=== PATIENT | female | born 1935 | race Caucasian/White ===

== ENCOUNTER → 2018-03-08 | Outpatient (CLI) | payer MEDICARE ==
[~2018-03-08] MED LIST: APIX5TAB PO; ATEN25TA PO; CLON-275 PO; FURO-93 PO; HYDR-3342 PO; LEVO200T5 PO; LOSA1TAB25 PO; POTA20TA14 PO; RALO60TA PO
== END | disposition home or self-care (01) ==
LOC: CFH 09:10
PROVIDERS: ATTEND Nurse Practitioner
DX: M50.222 Other cervical disc displacement at C5-C6 level (principal); M43.12 Spondylolisthesis, cervical region; E03.9 Hypothyroidism, unspecified; I10 Essential (primary) hypertension; Z88.8 Allergy status to other drugs, medicaments and biological substances
CPT/HCPCS: 72141

== ENCOUNTER 2018-09-06 10:15 | Inpatient (IN) | payer MEDICARE ==
[~2018-09-06] VITALS: Ht 157.5 cm; Wt 62.3 kg
[2018-09-06 11:00] LABS: BASOPHILS # (AUTO) 0.03 x10^3/uL (0-0.1); BASOPHILS % (AUTO) 0 % (0-1); EOSINOPHILS # (AUTO) 0.08 x10^3/uL (0-0.4); EOSINOPHILS % (AUTO) 1 % (1-7); LYMPHOCYTES # (AUTO) 0.99 x10^3/uL (1-3.4); LYMPHOCYTES % (AUTO) 12 % (22-44); MD NO; MEAN CORPUSCULAR HEMOGLOBIN 31.3 pg (27.0-34.8); MEAN CORPUSCULAR HGB CONC 32.5 g/dL (32.4-35.8); MEAN CORPUSCULAR VOLUME 96.3 fL (80-100); MEAN PLATELET VOLUME 9.9 fL (7.4-10.4); MONOCYTES # (AUTO) 0.54 x10^3/uL (0.2-0.8); MONOCYTES % (AUTO) 7 % (2-9); NEUTROPHILS # (AUTO) 6.68 x10^3/uL (1.8-6.8); NEUTROPHILS % (AUTO) 80 % (42-75); PLATELET COUNT 187 x10^3/uL (130-400); RED BLOOD COUNT 3.84 x10^6/uL (3.82-5.3); RED CELL DISTRIBUTION WIDTH 14.5 % (9.6-15.2)
[2018-09-06] MEDS ORDERED: SODIUM CHLORIDE FLUSH 10ML SYR IVF ONE (11:00)
[2018-09-06] MEDS ORDERED: ALBUTEROL/IPRATROPIUM 2.5MG/0.5MG, 3 ML NPPB PRN ×2 (11:00→17:00)
[2018-09-06 11:11] LABS: ALANINE AMINOTRANSFERASE 20 U/L (12-78); ALBUMIN 3.6 g/dL (3.4-5.0); ANION GAP 7 mmol/L (5-15); CALCIUM 9.1 mg/dL (8.5-10.1); CHLORIDE 106 mmol/L (98-107)
[2018-09-06 11:16] LABS: ALKALINE PHOSPHATASE 24 U/L (45-117); BILIRUBIN,TOTAL 1.1 mg/dL (0.2-1.0); CREATININE 1.22 mg/dL (0.55-1.02); TOTAL PROTEIN 7.4 g/dL (6.4-8.2); TROPONIN I < 0.015 ng/mL (0.000-0.045)
[2018-09-06] MEDS ORDERED: ALBUTEROL/IPRATROPIUM 2.5MG/0.5MG, 3 ML ONE ×2 (11:20→15:52)
--- NOTE | 2018-09-06 11:22 | NUR ---
PT PLACED ON HEART MONITOR, BP CUFF, PULSE OX. VSS/UPDATED IN COMPUTER. WARM BLANKET PROVIDED, CALL LIGHT WITHIN REACH. POC DISCUSSED WITH PT AND FAMILY. RT AT BS.
--- NOTE | 2018-09-06 11:34 | NUR ---
ERROR, PREVIOUS NOTE PLACED IN ERROR UNDER YO RN. CARE ASSUMED BY THIS RN: PT PLACED ON HEART MONITOR, BP CUFF, PULSE OX. VSS/UPDATED IN COMPUTER. WARM BLANKET PROVIDED, CALL LIGHT WITHIN REACH. POC DISCUSSED WITH PT AND FAMILY. RT AT BS.
--- NOTE | 2018-09-06 11:47 | NUR ---
IV SL PLACED. PT AND FAMILY UPDATED ON POC. VSS, AWAITING CTA.
[2018-09-06] MEDS ORDERED: LEVO175T5 PO (12:51)
[2018-09-06] MEDS ORDERED: FAMO20TA7 PO (12:53)
[2018-09-06] MEDS ORDERED: FUROSEMIDE 20 MG/2 ML ONE (12:55)
[2018-09-06] MEDS ORDERED: FUROSEMIDE 20 MG/2 ML IV ONE (13:00)
[2018-09-06] MEDS ORDERED: SODIUM CHLORIDE FLUSH 10ML SYR IVF PRN (13:30)
--- NOTE | 2018-09-06 13:56 | NUR ---
ATTEMPT TO CALL REPORT X 4. NO ANSWER ON TELE, NO ANSWER ON SUP PHONE.
[2018-09-06 14:33] VITALS: BP 139/77
[2018-09-06] MEDS ORDERED: ONDANSETRON 2MG/ML, 2ML IVPush PRN (15:30)
[2018-09-06] MEDS ORDERED: PROMETHAZINE 25 MG/ML, 1ML IM PRN (15:30)
[2018-09-06] MEDS ORDERED: LABETALOL 5MG/ML, 20ML IVPush PRN (15:30)
[2018-09-06] MEDS ORDERED: hydrALAzine 20 MG/ML, 1ML IVPush PRN (15:30)
[2018-09-06] MEDS ORDERED: BISACODYL 10 MG SUPP PR PRN (15:30)
[2018-09-06] MEDS ORDERED: morphine SULFATE 10 MG/ML, 1ML IVPush PRN (15:30)
[2018-09-06] MEDS ORDERED: OXYcodone IR 5MG TABLET PO PRN (15:30)
[2018-09-06] MEDS ORDERED: POLYETHYLENE GLYCOL 17 GM PACKET PO PRN (15:30)
[2018-09-06] MEDS ORDERED: ACETAMINOPHEN 325 MG TABLET PO PRN (15:30)
[2018-09-06] MEDS ORDERED: ONDANSETRON ODT 4 MG PO PRN (15:30)
[2018-09-06 16:09] LABS: FREE T4 (FREE THYROXINE) 1.22 ng/dL (0.76-1.46); THYROID STIMULATING HORMONE 3.54 mIU/L (0.358-3.740)
[2018-09-06 16:12] LABS: HEMOGLOBIN A1C 5.6 % (4.2-6.3)
[2018-09-06] MEDS ORDERED: IBUP-1484 PO (17:32)
[2018-09-06] MEDS ORDERED: NAPR220T77 PO (17:32)
[2018-09-06] MEDS ORDERED: FURO20TA3 PO (17:40)
[2018-09-06] MEDS ORDERED: HYDR25TA6 PO (17:40)
[2018-09-06] MEDS ORDERED: POTA20TA14 PO (17:40)
[2018-09-06] MEDS ORDERED: LOSA100T14 PO (17:40)
[2018-09-06] MEDS: FUROSEMIDE 20 MG/2 ML IV SCH (17:57)
[2018-09-06 19:50] VITALS: BP 119/69
[2018-09-06] MEDS: APIXABAN 5 MG TABLET PO SCH (20:26)
[2018-09-06] MEDS: FAMOTIDINE 20 MG TABLET PO SCH (20:26)
[2018-09-06] MEDS ORDERED: GABAPENTIN 300 MG CAPSULE PO PRN (21:00)
[2018-09-06] MEDS ORDERED: DOCUSATE 100 MG CAPSULE PO PRN (21:00)
[2018-09-06] MEDS: ALBUTEROL/IPRATROPIUM 2.5MG/0.5MG, 3 ML NPPB SCH (21:30)
[2018-09-07 02:00] VITALS: BP 127/70
[2018-09-07] MEDS: LEVOTHYROXINE 175 MCG TABLET PO SCH (05:42)
[2018-09-07 06:02] LABS: BASOPHILS # (AUTO) 0.05 x10^3/uL (0-0.1); BASOPHILS % (AUTO) 1 % (0-1); EOSINOPHILS # (AUTO) 0.23 x10^3/uL (0-0.4); EOSINOPHILS % (AUTO) 3 % (1-7); LYMPHOCYTES # (AUTO) 1.69 x10^3/uL (1-3.4); LYMPHOCYTES % (AUTO) 21 % (22-44); MD NO; MEAN CORPUSCULAR HEMOGLOBIN 32.3 pg (27.0-34.8); MEAN CORPUSCULAR HGB CONC 33.4 g/dL (32.4-35.8); MEAN CORPUSCULAR VOLUME 96.8 fL (80-100); MEAN PLATELET VOLUME 9.7 fL (7.4-10.4); MONOCYTES # (AUTO) 0.79 x10^3/uL (0.2-0.8); MONOCYTES % (AUTO) 10 % (2-9); NEUTROPHILS # (AUTO) 5.23 x10^3/uL (1.8-6.8); NEUTROPHILS % (AUTO) 66 % (42-75); PLATELET COUNT 191 x10^3/uL (130-400); RED BLOOD COUNT 3.73 x10^6/uL (3.82-5.3); RED CELL DISTRIBUTION WIDTH 14.8 % (9.6-15.2)
[2018-09-07 06:10] LABS: ALBUMIN 3.3 g/dL (3.4-5.0); ANION GAP 7 mmol/L (5-15); CALCIUM 8.7 mg/dL (8.5-10.1); CHLORIDE 101 mmol/L (98-107)
[2018-09-07 06:15] LABS: ALANINE AMINOTRANSFERASE 18 U/L (12-78); ALKALINE PHOSPHATASE 26 U/L (45-117); BILIRUBIN,TOTAL 1.4 mg/dL (0.2-1.0); CHOL/HDL RATIO 2.1; CHOLESTEROL, TOTAL 124 mg/dL (140-239); CREATININE 1.37 mg/dL (0.55-1.02); HDL CHOL % 48 % (28-40); HDL CHOLESTEROL (DIRECT) 60 mg/dL (40-60); LDL CHOLESTEROL,CALCULATED 43 mg/dL (54-169); LDL/HDL RATIO 0.7 (0.5-3.0); TOTAL PROTEIN 6.9 g/dL (6.4-8.2); TRIGLYCERIDES 107 mg/dL (50-200); VLDL CHOLESTEROL 21 mg/dL (0-25)
[2018-09-07 06:45] VITALS: BP 116/74
[2018-09-07] MEDS: ALBUTEROL/IPRATROPIUM 2.5MG/0.5MG, 3 ML NPPB SCH ×2 (07:00→11:00)
[2018-09-07] MEDS: FUROSEMIDE 20 MG/2 ML IV SCH ×2 (07:52→16:56)
[2018-09-07] MEDS: APIXABAN 5 MG TABLET PO SCH ×2 (07:52→20:10)
[2018-09-07] MEDS ORDERED: POTASSIUM CHLORIDE 20 MEQ TAB.ER.PRT PO ONE (08:00)
[2018-09-07] MEDS ORDERED: MAGNESIUM SULFATE PMX 2GM/50ML 50 ML IV ONE (08:00)
[2018-09-07] MEDS: RALOXIFENE 60 MG TABLET PO SCH (08:13)
[2018-09-07] MEDS ORDERED: ATENOLOL 25 MG TABLET PO SCH (09:00)
[2018-09-07 15:36] VITALS: BP 112/70
[2018-09-07 19:40] VITALS: BP 113/58
[2018-09-07] MEDS: FAMOTIDINE 20 MG TABLET PO SCH (20:10)
[2018-09-08 02:37] VITALS: BP 114/71
[2018-09-08] MEDS: LEVOTHYROXINE 175 MCG TABLET PO SCH (05:25)
[2018-09-08 08:52] VITALS: BP 131/81
[2018-09-08] MEDS: FUROSEMIDE 20 MG/2 ML IV SCH (08:54)
[2018-09-08] MEDS: APIXABAN 5 MG TABLET PO SCH (08:56)
[2018-09-08] MEDS ORDERED: POTASSIUM CHLORIDE 10 MEQ TABLET.ER PO SCH (09:00)
[2018-09-08] MEDS ORDERED: ATENOLOL 25 MG TABLET PO SCH (09:00)
[2018-09-08] MEDS: RALOXIFENE 60 MG TABLET PO SCH (09:01)
[2018-09-08 11:36] LABS: ANION GAP 5 mmol/L (5-15); CALCIUM 8.5 mg/dL (8.5-10.1); CHLORIDE 102 mmol/L (98-107); CREATININE 1.26 mg/dL (0.55-1.02)
[2018-09-08] MEDS ORDERED: FURO20TA3 PO (11:47)
[2018-09-08 12:50] VITALS: BP 103/65
[2018-09-08] MEDS ORDERED: ALBU2.5V11 NEB (16:34)
== END 2018-09-08 16:31 | disposition home or self-care (01) | DRG 682 ==
LOC: ED 11:39 → EDIP 13:12 → 5SO 14:30
PROVIDERS: ADMIT Internal Medicine; ATTEND Internal Medicine
DX: N17.0 Acute kidney failure with tubular necrosis (principal); J96.20 Acute and chronic respiratory failure, unspecified whether with hypoxia or hypercapnia; I50.21 Acute systolic (congestive) heart failure; D68.69 Other thrombophilia; E46 Unspecified protein-calorie malnutrition; I31.3 Pericardial effusion (noninflammatory); J44.1 Chronic obstructive pulmonary disease with (acute) exacerbation; E03.9 Hypothyroidism, unspecified; Z68.25 Body mass index [BMI] 25.0-25.9, adult; I11.0 Hypertensive heart disease with heart failure; I08.3 Combined rheumatic disorders of mitral, aortic and tricuspid valves; I48.2 Chronic atrial fibrillation; I77.819 Aortic ectasia, unspecified site; M81.0 Age-related osteoporosis without current pathological fracture; Z87.891 Personal history of nicotine dependence; Z90.49 Acquired absence of other specified parts of digestive tract; Z88.8 Allergy status to other drugs, medicaments and biological substances
CPT/HCPCS: 36415; 71045; 71275; 80048; 80053; 80061; 83036; 83735; 83880; 84439; 84443; 84484; 85025; 87070; 87205; 93005; 93306; 94640; 96374; G0378; J7620; J1940; J3475

== ENCOUNTER → 2018-09-25 | Outpatient (CLI) | payer MEDICARE ==
[~2018-09-25] MED LIST changes: +ALBU2.5V11 NEB; +FAMO20TA7 PO; +FURO20TA3 PO; +HYDR25TA6 PO; +IBUP-1484 PO; +LEVO175T5 PO; +LOSA100T14 PO; +NAPR220T77 PO
== END | disposition home or self-care (01) ==
LOC: RAD 08:44
PROVIDERS: ATTEND Family Medicine
DX: K22.8 Other specified diseases of esophagus (principal)
CPT/HCPCS: 74241

== ENCOUNTER → 2018-11-05 | Outpatient (CLI) | payer MEDICARE ==
[~2018-11-05] MED LIST changes: +OMNIPAQUE 350 MG/ML, 100ML BOTTLE ONE
== END | disposition home or self-care (01) ==
LOC: RAD 12:08
PROVIDERS: ATTEND Otolaryngology
DX: R13.10 Dysphagia, unspecified (principal); R49.0 Dysphonia
CPT/HCPCS: 70491; 74220; Q9967

== ENCOUNTER 2018-11-21 08:54 | Day surgery (SDC) | payer MEDICARE ==
[~2018-11-21] VITALS: Ht 157.5 cm; Wt 62.5 kg
[~2018-11-21 08:54] MED LIST changes: -OMNIPAQUE 350 MG/ML, 100ML BOTTLE ONE
[2018-11-21] MEDS ORDERED: LACTATED RINGERS 1,000 ML IV SCH (09:33)
[2018-11-21 10:03] VITALS: BP 131/78
[2018-11-21] MEDS ORDERED: ALBUTEROL SULFATE 2.5 MG/3 ML NPPB PRN (11:00)
[2018-11-21] MEDS ORDERED: PROPOFOL 10 MG/ML, 20ML ONE (15:30)
== END 2018-11-21 12:30 | disposition home or self-care (01) ==
LOC: OUT 08:54
PROVIDERS: ATTEND Internal Medicine Gastroenterology
DX: K22.2 Esophageal obstruction (principal); K29.50 Unspecified chronic gastritis without bleeding; K63.5 Polyp of colon; I11.0 Hypertensive heart disease with heart failure; I50.9 Heart failure, unspecified; J44.9 Chronic obstructive pulmonary disease, unspecified; E03.9 Hypothyroidism, unspecified; I48.91 Unspecified atrial fibrillation
CPT/HCPCS: 43239; 43248; 88305; J2704; J7120

== ENCOUNTER → 2020-04-16 | Outpatient (CLI) | payer MEDICARE ==
[~2020-04-16] MED LIST changes: -IBUP-1484 PO; +IBUP-1902 PO
== END | disposition home or self-care (01) ==
LOC: CFH 08:26
PROVIDERS: ATTEND Family Medicine
DX: N63.13 Unspecified lump in the right breast, lower outer quadrant (principal)
CPT/HCPCS: 76642; 77066; G0279

== ENCOUNTER 2020-04-20 08:29 | Outpatient (CLI) | payer MEDICARE ==
[2020-04-20] MEDS ORDERED: LIDOCAINE 1%, 20ML ONE (09:45)
[2020-04-20] MEDS ORDERED: SODIUM BICARBONATE 4.2%, 5ML ONE (09:45)
[2020-04-20] MEDS ORDERED: LIDOCAINE 1%-EPI 1:100K, 20ML ONE (09:45)
== END 2020-04-20 23:59 | disposition home or self-care (01) ==
LOC: CFH 08:29
PROVIDERS: ATTEND Family Medicine
DX: N63.13 Unspecified lump in the right breast, lower outer quadrant (principal); C50.511 Malignant neoplasm of lower-outer quadrant of right female breast
CPT/HCPCS: 19083; 77065; 88305; 88341; 88342; 88360; J3490

== ENCOUNTER → 2020-05-24 | Outpatient (CLI) | payer MEDICARE ==
[~2020-05-24] MED LIST changes: +A REDS PO; +GLUC500T11 PO; +MULT-449 PO; +OMEP20TA62 PO; +Oxygen INH; +SPIR25TA5 PO; +[UNRECOGNIZED DRUG - CODE] PO
[2020-05-24 11:06] LABS: ALBUMIN 3.5 g/dL (3.4-5.0); ANION GAP 6 mmol/L (5-15); CALCIUM 9.8 mg/dL (8.5-10.1); CHLORIDE 102 mmol/L (98-107)
[2020-05-24 11:10] LABS: ALANINE AMINOTRANSFERASE 17 U/L (12-78); ALKALINE PHOSPHATASE 22 U/L (45-117); CREATININE 1.38 mg/dL (0.55-1.02); TOTAL PROTEIN 7.7 g/dL (6.4-8.2)
== END | disposition home or self-care (01) ==
LOC: STAR 09:21
PROVIDERS: ATTEND Surgery
DX: Z01.812 Encounter for preprocedural laboratory examination (principal); C50.811 Malignant neoplasm of overlapping sites of right female breast; I44.4 Left anterior fascicular block; I48.91 Unspecified atrial fibrillation; I51.7 Cardiomegaly; I21.9 Acute myocardial infarction, unspecified; Z20.828 Contact with and (suspected) exposure to other viral communicable diseases
CPT/HCPCS: 36415; 80053; 87635; 93005

== ENCOUNTER 2020-05-27 11:27 | Day surgery (SDC) | payer MEDICARE ==
[~2020-05-27] VITALS: Ht 154.9 cm; Wt 61.5 kg
[~2020-05-27 11:27] MED LIST changes: +BUPIVACAINE/PF 0.5% ONE; +EPINEPHRINE 1 MG/ML, 1ML ONE; +ISOSULFAN BLUE 10 MG/ML, 5ML IV ONE
[2020-05-27] MEDS ORDERED: CHLORHEXIDINE 15 ML UDC MM STA (11:41)
[2020-05-27] MEDS ORDERED: CHLORHEXIDINE 15 ML UDC ONE (11:45)
[2020-05-27 11:56] VITALS: BP 122/76
[2020-05-27] MEDS ORDERED: LACTATED RINGERS 1,000 ML IV SCH (12:00)
[2020-05-27] MEDS ORDERED: PROPOFOL 10 MG/ML, 20ML ONE (13:47)
[2020-05-27] MEDS ORDERED: DEXAMETHASONE 4 MG/ML, 1ML ONE (13:47)
[2020-05-27] MEDS ORDERED: CEFAZOLIN 1,000 MG ONE (13:47)
[2020-05-27] MEDS ORDERED: FENTANYL PF 100 MCG/2ML ONE ×2 (13:52→15:06)
[2020-05-27] MEDS ORDERED: ACETAMINOPHEN 650 MG/20.3 ML UDC ONE (15:05)
[2020-05-27] MEDS ORDERED: OXYcodone 5 MG/5 ML ORAL.SOL UDC ONE (15:05)
[2020-05-27] MEDS ORDERED: OXYcodone 5 MG/5 ML ORAL.SOL UDC PO PRN (15:30)
[2020-05-27] MEDS ORDERED: ACETAMINOPHEN 325 MG TABLET PO PRN (15:30)
[2020-05-27] MEDS ORDERED: PROMETHAZINE 25 MG/ML, 1ML IVPush PRN (15:30)
[2020-05-27] MEDS ORDERED: ONDANSETRON 2MG/ML, 2ML IVPush PRN (15:30)
[2020-05-27] MEDS ORDERED: FENTANYL PF 100 MCG/2ML IV PRN (15:30)
== END 2020-05-27 16:40 | disposition home or self-care (01) ==
LOC: OUT 11:27
PROVIDERS: ATTEND Surgery
DX: C50.811 Malignant neoplasm of overlapping sites of right female breast (principal); I48.91 Unspecified atrial fibrillation; I13.0 Hypertensive heart and chronic kidney disease with heart failure and stage 1 through stage 4 chronic kidney disease, or unspecified chronic kidney disease; N18.9 Chronic kidney disease, unspecified; I50.9 Heart failure, unspecified; J44.9 Chronic obstructive pulmonary disease, unspecified; E89.0 Postprocedural hypothyroidism; I27.20 Pulmonary hypertension, unspecified; K21.9 Gastro-esophageal reflux disease without esophagitis; M19.90 Unspecified osteoarthritis, unspecified site; Z17.0 Estrogen receptor positive status [ER+]; Z79.01 Long term (current) use of anticoagulants; Z79.890 Hormone replacement therapy; Z79.899 Other long term (current) drug therapy; Z87.891 Personal history of nicotine dependence; Z90.49 Acquired absence of other specified parts of digestive tract; Z99.81 Dependence on supplemental oxygen; Z80.3 Family history of malignant neoplasm of breast
CPT/HCPCS: 19301; 88305; 88329; 88341; 88342; J0171; J0690; J1100; J2704; J3010; J7120

== ENCOUNTER 2020-07-01 06:25 | Day surgery (SDC) | payer MEDICARE ==
[2020-06-29 12:37] LABS: ALANINE AMINOTRANSFERASE 18 U/L (12-78); ALBUMIN 3.6 g/dL (3.4-5.0); ANION GAP 7 mmol/L (5-15); CHLORIDE 105 mmol/L (98-107); CREATININE 1.53 mg/dL (0.55-1.02)
[2020-06-29 12:40] LABS: ALKALINE PHOSPHATASE 21 U/L (45-117); BILIRUBIN,TOTAL 0.9 mg/dL (0.2-1.0); TOTAL PROTEIN 7.5 g/dL (6.4-8.2)
[~2020-07-01] VITALS: Ht 157.5 cm; Wt 61.0 kg
[~2020-07-01 06:25] MED LIST changes: -BUPIVACAINE/PF 0.5% ONE; -EPINEPHRINE 1 MG/ML, 1ML ONE; -ISOSULFAN BLUE 10 MG/ML, 5ML IV ONE
[2020-07-01] MEDS ORDERED: CHLORHEXIDINE 15 ML UDC MM STA (06:47)
[2020-07-01 06:49] VITALS: BP 123/71
[2020-07-01] MEDS ORDERED: CHLORHEXIDINE 15 ML UDC ONE (06:56)
[2020-07-01] MEDS ORDERED: LACTATED RINGERS 1,000 ML IV SCH (07:00)
[2020-07-01] MEDS ORDERED: BUPIVACAINE/PF 0.5% ONE (07:00)
[2020-07-01] MEDS ORDERED: ISOSULFAN BLUE 10 MG/ML, 5ML IV ONE (07:01)
[2020-07-01] MEDS ORDERED: EPINEPHRINE 1 MG/ML, 1ML ONE (07:01)
[2020-07-01] MEDS ORDERED: ACETAMINOPHEN 500 MG TABLET PO ONE (07:30)
[2020-07-01] MEDS ORDERED: ACETAMINOPHEN 500 MG TABLET ONE (07:38)
[2020-07-01] MEDS ORDERED: FENTANYL PF 100 MCG/2ML ONE (07:49)
[2020-07-01] MEDS ORDERED: PROPOFOL 10 MG/ML, 20ML ONE (07:59)
[2020-07-01] MEDS ORDERED: DEXAMETHASONE 4 MG/ML, 1ML ONE (07:59)
[2020-07-01] MEDS ORDERED: CEFAZOLIN 1,000 MG ONE (07:59)
[2020-07-01] MEDS ORDERED: ONDANSETRON 2MG/ML, 2ML ONE (07:59)
[2020-07-01] MEDS ORDERED: hydrALAzine 20 MG/ML, 1ML IV PRN (08:00)
[2020-07-01] MEDS ORDERED: FENTANYL PF 100 MCG/2ML IV PRN (08:00)
[2020-07-01] MEDS ORDERED: METOPROLOL 1 MG/ML, 5ML IV PRN (08:00)
[2020-07-01] MEDS ORDERED: LABETALOL 5MG/ML, 20ML IV PRN (08:00)
[2020-07-01] MEDS ORDERED: HYDROmorphone 1 MG/ML, 1ML INJ IVPush PRN (08:00)
[2020-07-01] MEDS ORDERED: ONDANSETRON 2MG/ML, 2ML IVPush PRN (08:00)
[2020-07-01] MEDS ORDERED: OXYC-302 PO (09:55)
== END 2020-07-01 12:00 | disposition home or self-care (01) ==
LOC: OUT 06:25
PROVIDERS: ATTEND Surgery
DX: C50.811 Malignant neoplasm of overlapping sites of right female breast (principal); I13.0 Hypertensive heart and chronic kidney disease with heart failure and stage 1 through stage 4 chronic kidney disease, or unspecified chronic kidney disease; N18.9 Chronic kidney disease, unspecified; I50.9 Heart failure, unspecified; J44.9 Chronic obstructive pulmonary disease, unspecified; E03.9 Hypothyroidism, unspecified; M19.90 Unspecified osteoarthritis, unspecified site; K21.9 Gastro-esophageal reflux disease without esophagitis; Z20.828 Contact with and (suspected) exposure to other viral communicable diseases; Z79.01 Long term (current) use of anticoagulants; Z79.899 Other long term (current) drug therapy; Z88.8 Allergy status to other drugs, medicaments and biological substances; Z87.891 Personal history of nicotine dependence; Z90.49 Acquired absence of other specified parts of digestive tract; Z98.890 Other specified postprocedural states; Z80.3 Family history of malignant neoplasm of breast
CPT/HCPCS: 19303; 36415; 80053; 88305; 88307; 93005; C1729; J0171; J0690; J1100; J2405; J2704; J3010; U0003

== ENCOUNTER → 2020-09-27 | Outpatient (CLI) | payer MEDICARE ==
[~2020-09-27] MED LIST changes: +OXYC1TAB14 PO
== END | disposition home or self-care (01) ==
LOC: CFH 10:33
PROVIDERS: ATTEND Internal Medicine Hematology & Oncology
DX: C50.811 Malignant neoplasm of overlapping sites of right female breast (principal); M85.89 Other specified disorders of bone density and structure, multiple sites
CPT/HCPCS: 77080